=== PATIENT | female | born 1950 | race Caucasian/White ===

== ENCOUNTER → 2018-06-27 | Outpatient (CLI) | payer OTHER ==
[~2018-06-27] MED LIST: AMPYRA10 MG PO; ANAPROX DS550 MG PO; CALCIUM CARBO1000 MG PO; DITROPAN OR; FOLIC ACID1 MG PO; LORAZEPAM 0.50.5 MG PO; MULTIPLE VITAM1 EAC3 PO; PROVIGIL 200 M200 M1 OR; SPIRONOLACTONE50 MG PO; TYSABRI IV; VITAMIN D 11000 UNIT PO; WELLBUTRIN XL300 M1 OR
== END | disposition home or self-care (01) ==
LOC: SPEC 12:40
DX: K94.23 Gastrostomy malfunction (principal); Z88.2 Allergy status to sulfonamides; Z88.8 Allergy status to other drugs, medicaments and biological substances; Z79.899 Other long term (current) drug therapy; Z98.890 Other specified postprocedural states; Z79.891 Long term (current) use of opiate analgesic